=== PATIENT | female | born 1995 ===

== ENCOUNTER 2021-05-08 15:41 | Emergency (ER) | payer SELFPAY ==
--- NOTE | 2021-05-08 17:11 | Emergency Department Report ---
ED General Adult HPI - General Chief complaint: Wound/Laceration Stated complaint: WOUND RECHECK Time Seen by Provider: 05/08/21 16:30 Source: patient Mode of arrival: Ambulatory Limitations: No Limitations - History of Present Illness Initial comments: Patient is a 25-year-old female presents emergency room with complaints of needing packing removal. She was evaluated in the emergency department 2 days ago and diagnosed with a pilonidal cyst and had an I&D performed with packing placed. She denies any complications. She denies any increased drainage, fever, vomiting. She states that she is taking her antibiotics. No past medical history. Severity scale (0 -10): 5 - Related Data Home Medications Medication Instructions Recorded Confirmed Last Taken No Known Home Medications [No 05/08/21 05/08/21 Unknown Reported Home Medications] Allergies Allergy/AdvReac Type Severity Reaction Status Date / Time No Known Allergies Allergy Unverified 05/08/21 17:13 ED Review of Systems ROS: Stated complaint: WOUND RECHECK Other details as noted in HPI Comment: All other systems reviewed and negative ED Past Medical Hx - Medications Home Medications: Home Medications Medication Instructions Recorded Confirmed Last Taken Type No Known Home Medications [No 05/08/21 05/08/21 Unknown History Reported Home Medications] ED Physical Exam - General Limitations: No Limitations General appearance: alert, in no apparent distress - Head Head exam: Present: atraumatic, normocephalic - Eye Eye exam: Present: normal appearance - ENT ENT exam: Present: mucous membranes moist - Neurological Exam Neurological exam: Present: alert, oriented X3 - Psychiatric Psychiatric exam: Present: normal affect, normal mood - Skin Skin exam: Present: warm, dry, other (packing in place to the left gluteal cleft, no induration, no drainage, no cellulitis) ED Course Vital Signs 05/08/21 05/08/21 15:49 17:11 Temperature 98.1 F 98.1 F Pulse Rate 110 H 86 Respiratory 18 16 Rate Blood Pressure 134/85 131/79 [Right] O2 Sat by Pulse 100 100 Oximetry ED Medical Decision Making - Lab Data Vital Signs 05/08/21 05/08/21 15:49 17:11 Temperature 98.1 F 98.1 F Pulse Rate 110 H 86 Respiratory 18 16 Rate Blood Pressure 134/85 131/79 [Right] O2 Sat by Pulse 100 100 Oximetry - Medical Decision Making Patient is a 25-year-old female presents emergency room with complaints of needing packing removal. She was evaluated in the emergency department 2 days ago and diagnosed with a pilonidal cyst and had an I&D performed with packing placed. She denies any complications. She denies any increased drainage, fever, vomiting. She states that she is taking her antibiotics. No past medical history. Initial vitals with mild tachycardia which improved to normal upon repeat. On exam:packing in place to the left gluteal cleft, no induration, no drainage, no cellulitis. Packing removed without any difficulty or complication. There is no drainage, no bleeding, irrigated with saline and sterile dressing applied. Advised patient Please keep area clean, dry, covered. Wash with antibacterial soap and water pat dry. Please do warm compresses. Please use sitz bath. Follow-up with your primary care doctor for reexamination. Please take your antibiotics to completion. Return to emergency room for any new or worsening symptoms Critical care attestation.: If time is entered above; I have spent that time in minutes in the direct care of this critically ill patient, excluding procedure time. ED Disposition Clinical Impression: Abscess packing removal Disposition: 01 HOME / SELF CARE / HOMELESS Is pt being admited?: No Does the pt Need Aspirin: No Condition: Stable Instructions: How to Take a Sitz Bath, Incision Care, Adult Additional Instructions: Please keep area clean, dry, covered. Wash with antibacterial soap and water pat dry. Please do warm compresses. Please use sitz bath. Follow-up with your primary care doctor for reexamination. Please take your antibiotics to completion. Return to emergency room for any new or worsening symptoms Referrals: JOEL KRAUS MD [Staff Physician] - 3-5 Days [facility] [Provider Group] - 3-5 Days Time of Disposition: 17:10 Print Language: ETHIOPIAN
[2021-05-08 17:13] VITALS: BP 131/79
== END 2021-05-08 20:13 | disposition home or self-care (01) ==
LOC: ED 15:41
DX: Z48.01 Encounter for change or removal of surgical wound dressing (principal)
CPT/HCPCS: 99282